=== PATIENT | female | born 1975 | race Caucasian/White ===

== ENCOUNTER 2017-08-30 13:18 | Emergency (ER) | payer OTHER ==
[~2017-08-30] VITALS: Ht 149.9 cm; Wt 83.0 kg
[2017-08-30 13:37] VITALS: BP 138/84
[2017-08-30 14:56] LABS: URINE BILIRUBIN NEGATIVE (Negative); URINE BLOOD 2+ (Negative); URINE CLARITY CLEAR; URINE COLOR YELLOW; URINE GLUCOSE-RANDOM* NEGATIVE (Negative); URINE KETONES NEGATIVE (Negative); URINE LEUKOCYTES-REFLEX NEGATIVE (Negative); URINE NITRITE-REFLEX NEGATIVE (Negative); URINE PROTEIN (DIPSTICK) NEGATIVE (Negative); URINE UROBILINOGEN 0.2 E.U./dl (0.2-1.0)
[2017-08-30 15:02] LABS: SQUAMOUS 0-3 Few /LPF (0-3); URINE WBC-REFLEX 0-5 Rare /HPF (0-5)
[2017-08-30 15:03] LABS: BACTERIA-REFLEX 1-9 Few /HPF (None Seen); CASTS None Seen /LPF (None Seen); CRYSTALS None Seen /LPF (None Seen); URINE RBC 0-2 Rare /HPF (0-2)
[2017-08-30 15:04] LABS: AMP/METHAMP Negative (Negative); BARBITURATES Negative (Negative); BENZODIAZEPINES Negative (Negative); COCAINE Negative (Negative); METHADONE Negative (Negative); OPIATES Negative (Negative); PCP Negative (Negative)
[2017-08-30] MEDS ORDERED: MEDROLDOSEPACK PO (15:10)
[2017-08-30] MEDS ORDERED: NAPROSYN500 MG PO (15:10)
[2017-08-30] MEDS ORDERED: ULTRAM 50MG TAB50 MG PO (15:10)
[2017-08-30] MEDS ORDERED: NORFLEX100 MG PO (15:10)
== END 2017-08-30 15:44 | disposition home or self-care (01) ==
LOC: ER 13:18
PROVIDERS: Emergency Medicine
DX: S39.012A Strain of muscle, fascia and tendon of lower back, initial encounter (principal); X58.XXXA Exposure to other specified factors, initial encounter; Y93.89 Activity, other specified; Y92.89 Other specified places as the place of occurrence of the external cause; Y99.8 Other external cause status